=== PATIENT | female | born 2000 | race Caucasian/White ===

== ENCOUNTER → 2020-12-28 | Outpatient (CLI) | payer OTHER ==
--- NOTE | 2020-12-28 17:23 | Diagnostic Imaging Report ---
Exam: MRI right foot without contrast. Date: December 28, 2020. Indication: 20-year-old female, right great toe pain. Comparison: None. Technique: Multiple noncontrast MRI sequences of the right foot were obtained. Findings: The visualized portions of the peroneus longus tendon are intact. The visualized portions of the posterior flexor tendons and anterior extensor tendons are intact. There is no evidence of tenosynovitis. The visualized portions of the plantar fascia are intact. The Lisfranc ligament proper is intact. The medial and lateral sesamoids were normally positioned relative to their facets for articulation of the distal aspect of the first metatarsal. There is no identified ligament tear at the level of the first metatarsophalangeal joint. There is no abnormal marrow edema in the sesamoids or other marrow signal abnormality in this location or otherwise identified in the included field of view. The joint spaces are well preserved. There is no joint effusion. Soft tissue assessment is unremarkable. Impression: 1. Normally positioned medial and lateral sesamoids with grossly unremarkable evaluation of the first metatarsophalangeal joint on standard MRI foot protocol of exam. 2. The imaged tendons are intact without evidence of tenosynovitis. 3. No acute fracture, bone contusion, stress reaction, or other bone marrow signal abnormality. 4. Unremarkable joint evaluation. 5. Unremarkable MRI of the right foot. Dictated by: Dictated on workstation # [id number]
== END ==
LOC: RAD 16:15
DX: M84.374A Stress fracture, right foot, initial encounter for fracture (principal)

== ENCOUNTER → 2021-09-23 | Outpatient (CLI) | payer OTHER ==
[~2021-09-23] MED LIST: CATHETER FLUSH 10 ML SYR IV PRN; HOLD METFORMIN - RECEIVED CONTRAST 20 ML VIAL IV SCH; IOHEXOL 350 MG/ML 100 ML (OMNIPAQUE 350) VIAL IV ONE; NS 100 ML (IVPB) BAG IV ONE
--- NOTE | 2021-09-23 11:44 | Diagnostic Imaging Report ---
EXAMINATION: CT abdomen and pelvis with intravenous contrast. TECHNIQUE: Multiple contiguous axial images were obtained through the abdomen and pelvis after the uneventful administration of intravenous contrast. All CT scans use one or more of the following dose optimizing techniques: automated exposure control, MA and/or KvP adjustment based on patient size and exam type or iterative reconstruction. HISTORY: Generalized abdominal pain. COMPARISON: None available. FINDINGS: The heart is unremarkable. The included lung bases are clear. The liver, spleen, pancreas, adrenal glands, and kidneys have a normal appearance. The gallbladder is nondistended. There is no pathologically enlarged mesenteric or retroperitoneal adenopathy. The bowel loops are nondilated. The appendix is visualized in the right lower quadrant and has a normal appearance. There is no free fluid or free air. No acute osseous abnormalities. Ureters and bladder are grossly normal. Trace free fluid is seen in the pelvis. There is no free air, loculated collection, or adenopathy in the pelvis. IMPRESSION: 1. No acute abnormalities in the abdomen and pelvis. No bowel obstruction. Normal appendix. 2. Trace physiologic free fluid in the pelvis. Dictated by: Dictated on workstation # [id number]
== END ==
LOC: RAD 11:09
PROVIDERS: ATTEND Internal Medicine Gastroenterology
DX: R10.84 Generalized abdominal pain (principal)
CPT/HCPCS: 74177